=== PATIENT | female | born 1975 | race American Indian/Alaskan Native ===

== ENCOUNTER 2016-06-24 08:55 | Outpatient (CLI) | payer BC ==
--- NOTE | 2016-06-24 10:48 | Ultrasound Report ---
ULTRASOUND RENAL BILATERAL HISTORY: Chronic renal disease. TECHNIQUE: transabdominal ultrasound with color Doppler interrogation. FINDINGS: The right kidney measures 10.3 x 4.6 x 5.2cm. Right renal cortex: 1.3cm. The left kidney measures 10.5 x 4.6 x 4.9cm. Left renal cortex: 1.1cm. The kidneys are normal size, contour and position. There is increased renal parenchymal echotexture bilaterally. Corticomedullary differentiation is preserved. No evidence for cystic disease, mass, hydronephrosis or perinephric fluid. The views of the bladder and the region of the ureters appear normal. IMPRESSION: Renal parenchymal disease.
== END 2016-06-24 08:56 | disposition home or self-care (01) ==
LOC: US 08:55
PROVIDERS: ATTEND Internal Medicine Nephrology
DX: N18.2 Chronic kidney disease, stage 2 (mild) (principal); N28.89 Other specified disorders of kidney and ureter
CPT/HCPCS: 76770

== ENCOUNTER 2019-05-10 16:25 | Outpatient (CLI) | payer BC ==
[2019-05-10 16:50] LABS: Hematocrit 35.5 % (30.3-42.9); Hemoglobin 12.2 gm/dl (10.1-14.3); Mean Corpuscular HGB Conc 35 % (30-34); Mean Corpuscular Volume 82 fl (79-97); Platelet Count 342 K/mm3 (140-440); Red Blood Count 4.35 M/mm3 (3.65-5.03); Red Cell Distribution Width 14.6 % (13.2-15.2)
[2019-05-10 17:38] LABS: Alanine Aminotransferase 10 units/L (7-56); Albumin 4.1 g/dL (3.9-5); BUN/Creatinine Ratio 9; Blood Urea Nitrogen 10 mg/dL (7-17); Calcium 9.2 mg/dL (8.4-10.2); Hemolysis Index 5
[2019-05-10 17:50] LABS: Erythrocyte Sedimentation Rate 20 mm/Hr (0-20)
== END 2019-05-10 16:26 | disposition home or self-care (01) ==
LOC: LAB 16:25
PROVIDERS: ATTEND Specialist
DX: M79.7 Fibromyalgia (principal); M54.17 Radiculopathy, lumbosacral region
CPT/HCPCS: 36415; 80053; 82085; 82306; 82550; 82607; 83036; 83921; 84443; 85027; 85652; 86038; 86225; 86334; 86431; 86592

== ENCOUNTER 2019-05-19 10:57 | Emergency (ER) | payer BC ==
[2019-05-19 11:07] VITALS: BP 124/71
[2019-05-19] MEDS ORDERED: BUTALB/ACETAMINOPHEN/CAFFEINE TAB PO ONE (12:39)
--- NOTE | 2019-05-19 12:44 | Emergency Department Report ---
Chief Complaint: Headache Stated Complaint: LEFT HEAD PAIN - HPI History of Present Illness: 43 yo AA F presents with left sided headache, facial pain and down to the neck since yesterday afternoon. No vision change, fever, slurred speech, numbness or any neurological deficits. Tried Tylenol and heating pad without much relief. 9 out of 10 in intensity. Has hx of migraines and this feels similar but not usually involving face and neck. Has neurologist (Dr Mcrae) but allegedly wont see patient unless he can do Botox. Also has pmhx of CKD stage 3 and fibromyalgia. - ROS Review of Systems: +DUONG, facial and neck pain -N/V, facial droop, slurred speech, numbness, weakness - Exam Vital Signs: Vital Signs 05/19/19 11:00 Temperature 98.5 F Pulse Rate 100 H Respiratory 18 Rate Blood Pressure 124/71 O2 Sat by Pulse 98 Oximetry Physical Exam: CN II - XII grossly intact. EOMI, PERRLA. No acute distress. MSE screening note: Focused history and physical exam performed. Due to findings the following was ordered: Analgesia and to fast track for re-evaluation Patient discussed with doctor:: PATRICIA REBOLLAR ED Disposition for MSE Condition: Stable
[2019-05-19] MEDS ORDERED: predniSONE 20 MG TAB PO ONE (13:48)
--- NOTE | 2019-05-19 14:26 | Emergency Department Report ---
ED Headache HPI - General Chief Complaint: Headache Stated Complaint: LEFT HEAD PAIN Time Seen by Provider: 05/19/19 13:41 - History of Present Illness Initial Comments: 43-year-old female who presents to the ED complaining of intermittent, throbbing headache for the past 2-3 days. Patient states that she does have a history of migraine headaches her last episode was 2 years ago she followed up with Dr. Rodriguez to neurologist. Patient's she was not unable to go into a can appointment with Dr. Boswell so she came into the ER to be evaluated. Patient states pain is localized to her left side of the head. She denies any trauma, injuries or falls. She denies any blurry vision, dizziness, nausea vomiting Quality: mild, achy Head Injury Location: frontal, temporal Recent Head Trauma: no recent headache/trauma Allergies/Adverse Reactions: Allergies chlorpheniramine [From Coricidin] Allergy (Verified 05/19/19 10:59) Rash chlorpheniramine maleate [From Coricidin] Allergy (Verified 05/19/19 10:59) Rash Penicillins Allergy (Verified 05/19/19 10:59) Swelling phenylpropanolamine HCl [From Coricidin] Allergy (Verified 05/19/19 10:59) Rash Home Medications: Ambulatory Orders Butalb/Acetamin/Caff 50-325-40 [Fioricet 50-325-40] 1 tab PO Q8HR PRN #30 tablet 05/19/19 ED Review of Systems ROS: Stated complaint: LEFT HEAD PAIN Other details as noted in HPI Comment: All other systems reviewed and negative ED Past Medical Hx - Past Medical History Hx Hypertension: Yes - Surgical History Hx Cholecystectomy: Yes - Social History Smoking Status: Never Smoker Substance Use Type: None - Medications Home Medications: Home Medications Medication Instructions Recorded Confirmed Last Taken Type Butalb/Acetamin/Caff 50-325-40 1 tab PO Q8HR PRN #30 tablet 05/19/19 Unknown Rx [Fioricet 50-325-40] ED Physical Exam - General Limitations: No Limitations General appearance: alert, in no apparent distress - Head Head exam: Present: atraumatic, normocephalic - Eye Eye exam: Present: normal appearance - ENT ENT exam: Present: mucous membranes moist - Neck Neck exam: Present: normal inspection - Respiratory Respiratory exam: Present: normal lung sounds bilaterally. Absent: respiratory distress - Cardiovascular Cardiovascular Exam: Present: regular rate, normal rhythm. Absent: systolic murmur, diastolic murmur, rubs, gallop - GI/Abdominal GI/Abdominal exam: Present: soft, normal bowel sounds - Extremities Exam Extremities exam: Present: normal inspection - Back Exam Back exam: Present: normal inspection - Neurological Exam Neurological exam: Present: alert, oriented X3, normal gait - Expanded Neurological Exam Expanded Patient oriented to: Present: person, place, time Speech: Present: fluid speech Cerebellar function: Finger to Nose: Normal Sensory exam: Upper Extremity Light Touch: Normal Best Eye Response ([place]): (4) open spontaneously Best Motor Response ([place]): (6) obeys commands Best Verbal Response ([place]): (5) oriented Nehal Total: 15 - Psychiatric Psychiatric exam: Present: normal affect, normal mood - Skin Skin exam: Present: warm, dry, intact, normal color. Absent: rash ED Course Vital Signs 05/19/19 11:00 Temperature 98.5 F Pulse Rate 100 H Respiratory 18 Rate Blood Pressure 124/71 O2 Sat by Pulse 98 Oximetry ED Medical Decision Making - Medical Decision Making 43-year-old female presents with headache migraine Patient does have a history of migraines and prescription medication given. Discussed the patient to follow up with the neurologist. Patient unable neurological deficit during the ED stay. Vital signs are normal, she is ambulatory without any problems patient received pain medication in the ED Critical care attestation.: If time is entered above; I have spent that time in minutes in the direct care of this critically ill patient, excluding procedure time. ED Disposition Clinical Impression: Migraine with acute onset aura Disposition: - TO HOME OR SELFCARE Is pt being admited?: No Does the pt Need Aspirin: No Condition: Stable Instructions: Migraine Headache (ED) Additional Instructions: Follow-up with primary care physician. Follow-up with Dr. Rodriguez your neurologist. Take medications as prescribed. If Symptoms worsen please return to ED immediately Prescriptions: Butalb/Acetamin/Caff 50-325-40 [Fioricet 50-325-40] 1 tab PO Q8HR PRN #30 tablet PRN Reason: Headache Referrals: PRIMARY CARE, [Primary Care Provider] - 3-5 Days GUSTAVO RODRIGUEZ MD [Referring] - 3-5 Days Forms: Work/School Release Form(ED) Time of Disposition: 14:26
== END 2019-05-19 15:16 | disposition home or self-care (01) ==
LOC: ED 10:57
DX: G43.109 Migraine with aura, not intractable, without status migrainosus (principal); I10 Essential (primary) hypertension; Z90.49 Acquired absence of other specified parts of digestive tract; Z79.899 Other long term (current) drug therapy; Z88.0 Allergy status to penicillin; Z88.8 Allergy status to other drugs, medicaments and biological substances
CPT/HCPCS: 99282; J7512